=== PATIENT | male | born 1945 | race Caucasian/White ===

== ENCOUNTER → 2017-09-30 10:23 | Outpatient (CLI) | payer MEDICARE, OTHER, SELFPAY ==
[2017-09-30 11:53] LABS: Albumin, Serum 3.4 g/dL (3.2-5.0); BUN 27 mg/dL (7-18); BUN/Creat Ratio 19.7 RATIO (10-20); Calcium,Total 8.8 mg/dL (8.5-10.1); Chloride 104 mmol/L (98-107); Creatinine, Serum 1.37 mg/dL (0.70-1.30); EST Glomerular Filtration Rate 54 mL/min (>60); Est Glom Filt Rate - Afr Amer 66 mL/min (>60); Glucose 242 mg/dL (74-106); Phosphorus 3.2 mg/dL (2.5-4.9); Potassium 4.4 mmol/L (3.5-5.1); Sodium Level 140 mmol/L (136-145)
== END ==
PROVIDERS: Family Provider Family Medicine; PCP Family Medicine; Visit Provider Internal Medicine Nephrology
DX: N17.9 Acute kidney failure, unspecified (principal); N18.3 Chronic kidney disease, stage 3 (moderate); R76.8 Other specified abnormal immunological findings in serum
CPT/HCPCS: 36415; 80069

== ENCOUNTER → 2017-10-23 13:31 | Outpatient (CLI) | payer MEDICARE, OTHER, SELFPAY ==
[2017-10-23 14:59] LABS: Albumin, Serum 3.4 g/dL (3.2-5.0); BUN 30 mg/dL (7-18); BUN/Creat Ratio 17.5 RATIO (10-20); Chloride 105 mmol/L (98-107); Creatinine, Serum 1.71 mg/dL (0.70-1.30); EST Glomerular Filtration Rate 42 mL/min (>60); Est Glom Filt Rate - Afr Amer 51 mL/min (>60); Glucose 187 mg/dL (74-106); Phosphorus 3.9 mg/dL (2.5-4.9); Potassium 4.6 mmol/L (3.5-5.1); Sodium Level 140 mmol/L (136-145)
== END ==
PROVIDERS: Family Provider Family Medicine; PCP Family Medicine; Visit Provider Internal Medicine Nephrology
DX: N18.3 Chronic kidney disease, stage 3 (moderate) (principal)
CPT/HCPCS: 36415; 80069

== ENCOUNTER → 2017-11-09 12:12 | Outpatient (CLI) | payer MEDICARE, OTHER, SELFPAY ==
[2017-11-09 13:27] LABS: Albumin, Serum 3.8 g/dL (3.2-5.0); BUN 29 mg/dL (7-18); BUN/Creat Ratio 18.8 RATIO (10-20); Calcium,Total 9.4 mg/dL (8.5-10.1); Chloride 103 mmol/L (98-107); Creatinine, Serum 1.54 mg/dL (0.70-1.30); EST Glomerular Filtration Rate 47 mL/min (>60); Est Glom Filt Rate - Afr Amer 57 mL/min (>60); Glucose 268 mg/dL (74-106); Phosphorus 4.1 mg/dL (2.5-4.9); Potassium 4.2 mmol/L (3.5-5.1); Sodium Level 139 mmol/L (136-145)
== END ==
PROVIDERS: Family Provider Family Medicine; PCP Family Medicine; Visit Provider Internal Medicine Nephrology
DX: N17.9 Acute kidney failure, unspecified (principal)
CPT/HCPCS: 36415; 80069

== ENCOUNTER → 2017-12-10 13:23 | Outpatient (CLI) | payer MEDICARE, OTHER, SELFPAY ==
[2017-12-10 16:10] LABS: Anion Gap 10 (5-15); BUN 27 mg/dL (7-18); BUN/Creat Ratio 18.5 RATIO (10-20); Calcium,Total 8.9 mg/dL (8.5-10.1); Chloride 103 mmol/L (98-107); Creatinine, Serum 1.46 mg/dL (0.70-1.30); EST Glomerular Filtration Rate 50 mL/min (>60); Est Glom Filt Rate - Afr Amer 61 mL/min (>60); Glucose 268 mg/dL (74-106); Potassium 3.9 mmol/L (3.5-5.1); Sodium Level 141 mmol/L (136-145); Uric Acid 8.3 mg/dL (3.5-7.2)
[2017-12-10 16:11] LABS: Absolute Lymphocyte Count 2.03 X10^3/ul (0.83-4.51); Basophil# 0.05 X10^3/uL; Basophil% 0.6 % (0-1); Eosinophil# 0.18 X10^3/uL; Hematocrit 46.3 % (40-54); Hemoglobin 15.4 g/dl (13.0-16.5); Lymphocyte # 2.03 X10^3/ul (4.0); Lymphocyte % 22.5 % (19-41); Mean Corp Hgb Conc 33.3 g/gl (32-36); Mean Corpuscular Hgb 31.2 pg (27.0-32.0); Mean Corpuscular Volume 93.7 fL (80-94); Mean Platelet Vol. 12.2 fl (6.2-12.0); Monocyte% 7.8 % (0-10); Neutrophil # 6.03 X10^3/uL (2.7-7.7); Neutrophil % 66.8 % (47-70); Platelet Count 160 K/mm3 (150-450); RBC Distribution Width CV 13.6 % (11.6-14.6); RBC Distribution Width SD 46.4 fl (35.1-43.9); Red Blood Count 4.94 M/mm3 (4.6-6.2)
[2017-12-10 16:12] LABS: POSITIVE COUNT NO; POSITIVE DIFFERENTIAL NO; POSITIVE MORPHOLOGY NO
== END ==
PROVIDERS: Family Provider Family Medicine; PCP Family Medicine; Visit Provider Family Medicine
DX: M10.9 Gout, unspecified (principal); J44.9 Chronic obstructive pulmonary disease, unspecified; N18.3 Chronic kidney disease, stage 3 (moderate)
CPT/HCPCS: 36415; 80048; 84550; 85025

== ENCOUNTER → 2017-12-23 18:38 | Outpatient (CLI) | payer MEDICARE, OTHER, SELFPAY ==
--- NOTE | 2017-12-23 06:30 | CT_ITS ---
STUDY: LOW DOSE CT LUNG CANCER SCREENING REASON FOR EXAM: Male, 72 years old. 60 pack-year smoker. RADIATION DOSAGE (If Supplied By Facility): CTDIvol = ( 3.02 ) mGy, DLP = ( 110.23 ) mGycm TECHNIQUE: No contrast was administered. Low dose technique was utilized (average mAS-38 and kVp 120). 1.25 mm axial source images with a slice interval of 1.25-mm were reconstructed in lung windows. 2.5 mm axial source images with a slice interval of 2.5-mm were reconstructed in lung windows. 5.0 mm axial source images with a slice interval of 5.0-mm were reconstructed in soft tissue windows. Nodule measured using lung windows on PACS and/or independent workstation with automated measurement of minimum and maximum diameter. Nodule measurement reported as average diameter rounded to the nearest whole number. Growth is defined as an increase ins size of greater than 1.5 mm. COMPARISON: Comparison is made with prior examination dated September 23, 2016. NODULES: No nodules are seen. Total lung nodules (excluding granulomas): 0 Emphysema: Mild degree of emphysematous changes. Mild degree of increased markings at the lung bases suggestive of a mild bibasilar scarring. Endobronchial lesion: Aorta: Atherosclerotic calcification of the aortic arch. Coronary arteries: Coronary calcification. Heart: A left-sided pacemaker is seen. Prior midline sternotomy. Mediastinal nodes: Small benign-appearing mediastinal lymph nodes. Other chest and abdominal findings: CT/Low Dose CT Lung Screening IMPRESSION: Lung-RADS category 2 - Continue annual screening with LDCT in 12 months. IMPORTANT NOTES FOR USE: ACR Lung-RADS Version 1.0 Assessment Categories Release Date: November 28, 2013 Category: Coded 0-4 bases on nodule(s) with highest degree of suspicion. Negative screen is defined as categories 1 and 2; a positive screen is defined as categories 3 and 4. Category 3 and 4A nodules that are unchanged on interval CT should be coded as category 2, and individuals returned to screening in 12 months. Category 4X: Category 3 or 4 nodules with additional imaging findings that increase the suspicion of lung cancer, such as spiculation, GGN that doubles in size in 1 year, enlarged lymph notes, etc. Category Modifiers: S (significant finding unrelated to lung cancer) and C (prior history of treated lung cancer) may be added to the 0-4 Lung-RADS Electronically Signed: Jesus Salazar MD at 10:20 EDT Tel [phone], Service support ,
== END ==
PROVIDERS: Family Provider Family Medicine; PCP Family Medicine; Visit Provider Family Medicine
DX: Z12.2 Encounter for screening for malignant neoplasm of respiratory organs (principal); J44.9 Chronic obstructive pulmonary disease, unspecified; Z87.891 Personal history of nicotine dependence
CPT/HCPCS: G0297

== ENCOUNTER → 2018-01-13 14:08 | Outpatient (CLI) | payer MEDICARE, OTHER, SELFPAY ==
[2018-01-13 16:15] LABS: Albumin, Serum 3.6 g/dL (3.2-5.0); BUN 22 mg/dL (7-18); BUN/Creat Ratio 16.2 RATIO (10-20); Chloride 104 mmol/L (98-107); Creatinine, Serum 1.36 mg/dL (0.70-1.30); EST Glomerular Filtration Rate 55 mL/min (>60); Est Glom Filt Rate - Afr Amer 66 mL/min (>60); Glucose 204 mg/dL (74-106); Phosphorus 3.5 mg/dL (2.5-4.9); Potassium 4.4 mmol/L (3.5-5.1); Sodium Level 140 mmol/L (136-145); Uric Acid 6.8 mg/dL (3.5-7.2)
[2018-01-13 16:21] LABS: Hemoglobin A1c 8.8 % (4.2-6.3)
== END ==
PROVIDERS: Family Provider Family Medicine; PCP Family Medicine; Visit Provider Internal Medicine Nephrology
DX: E79.0 Hyperuricemia without signs of inflammatory arthritis and tophaceous disease (principal); E11.29 Type 2 diabetes mellitus with other diabetic kidney complication; N17.9 Acute kidney failure, unspecified
CPT/HCPCS: 36415; 80069; 83036; 84550

== ENCOUNTER → 2018-04-12 12:51 | Outpatient (CLI) | payer MEDICARE, OTHER, SELFPAY ==
[2018-04-12 13:47] LABS: Hemoglobin A1c 8.3 % (4.2-6.3)
[2018-04-12 14:02] LABS: AST(SGOT) 50 U/L (15-37); Alanine Aminotransfer ALT/SGPT 74 U/L (16-61); Albumin, Serum 3.4 g/dL (3.2-5.0); Alkaline Phosphatase 132 U/L (45-117); Bilirubin, Direct 0.13 mg/dL (0.00-0.30); Cholesterol 182 mg/dL (200); Globulin 4.2 g/dL (2.2-4.2); High Density Lipoprotein 51 mg/dL; Protein, Total 7.6 g/dL (6.4-8.2); Triglycerides 167 mg/dL; Very Low Density Lipoprotein 33 mg/dL (5-40)
== END ==
PROVIDERS: Family Provider Family Medicine; PCP Family Medicine; Visit Provider Internal Medicine Cardiovascular Disease
DX: E78.00 Pure hypercholesterolemia, unspecified (principal); E11.29 Type 2 diabetes mellitus with other diabetic kidney complication; E79.0 Hyperuricemia without signs of inflammatory arthritis and tophaceous disease
CPT/HCPCS: 36415; 80061; 80076; 83036; 84550

== ENCOUNTER → 2018-05-14 09:42 | Outpatient (CLI) | payer MEDICARE, OTHER, SELFPAY ==
--- NOTE | 2018-05-14 09:45 | US_ITS ---
PROCEDURES: ULTRASOUND AORTA REASON FOR EXAM: Male, 72 years old. CAD TECHNIQUE: Ultrasound evaluation of the aorta was performed with real-time and static kearney-scale imaging. COMPARISON: None. FINDINGS: There is no elongation or tortuosity of the abdominal aorta. Aorta measures: Proximal 2.3 cm. Middle 2.4 cm. Distal 4.2 cm. Aorta measure transversely: Proximal 2.5 cm. Middle 2.0 cm. Distal 4.6 cm. Right iliac artery measures: 0.9 cm. Right iliac artery measure transversely: 1.2 cm. Left iliac artery measures: 1.2 cm. Left iliac artery measure transversely: 1.2 cm. There is distal abdominal aortic aneurysm with intraluminal thrombus.. US/US ABD AORTA SCREEN/AAA IMPRESSION: Aneurysm of the distal abdominal aorta with intraluminal thrombus. Electronically Signed: Amarjit Gutiérrez DO at 23:57 EDT Tel [phone], Service support ,
== END ==
PROVIDERS: Family Provider Family Medicine; PCP Family Medicine; Referring Provider Family Medicine; Visit Provider Family Medicine
DX: I25.10 Atherosclerotic heart disease of native coronary artery without angina pectoris (principal); Z87.891 Personal history of nicotine dependence
CPT/HCPCS: 76706

== ENCOUNTER → 2018-05-28 11:39 | Outpatient (CLI) | payer MEDICARE, OTHER, SELFPAY ==
[2018-05-28 12:53] LABS: AST(SGOT) 33 U/L (15-37); Alanine Aminotransfer ALT/SGPT 40 U/L (16-61); Albumin, Serum 3.2 g/dL (3.2-5.0); Alkaline Phosphatase 130 U/L (45-117); Bilirubin, Direct 0.11 mg/dL (0.00-0.30); Cholesterol 162 mg/dL (200); Globulin 4.1 g/dL (2.2-4.2); High Density Lipoprotein 45 mg/dL; Protein, Total 7.3 g/dL (6.4-8.2); Triglycerides 124 mg/dL; Very Low Density Lipoprotein 25 mg/dL (5-40)
== END ==
PROVIDERS: Family Provider Family Medicine; PCP Family Medicine; Referring Provider Nurse Practitioner Family; Visit Provider Nurse Practitioner Family
DX: E78.00 Pure hypercholesterolemia, unspecified (principal)
CPT/HCPCS: 36415; 80061; 80076

== ENCOUNTER → 2018-07-30 14:30 | Outpatient (CLI) | payer MEDICARE, OTHER, SELFPAY ==
[2018-07-30 15:23] LABS: Protein, Urine (Random) 221.6 mg/dL (<11.9); Protein:Creat Ratio 2151 mg/g CRE (0-200)
[2018-07-30 15:35] LABS: Hematocrit 45.6 % (40-54); Mean Corp Hgb Conc 32.9 g/gl (32-36); Mean Corpuscular Hgb 31.1 pg (27.0-32.0); Mean Corpuscular Volume 94.6 fL (80-94); Mean Platelet Vol. 12.2 fl (6.2-12.0); Platelet Count 157 K/mm3 (150-450); RBC Distribution Width CV 14.5 % (11.6-14.6); RBC Distribution Width SD 48.5 fl (35.1-43.9); Red Blood Count 4.82 M/mm3 (4.6-6.2); White Blood Count 8.9 K/mm3 (4.4-11.0)
[2018-07-30 15:49] LABS: Albumin, Serum 3.2 g/dL (3.2-5.0); BUN 22 mg/dL (7-18); BUN/Creat Ratio 15.2 RATIO (10-20); Calcium,Total 8.6 mg/dL (8.5-10.1); Chloride 108 mmol/L (98-107); Creatinine, Serum 1.45 mg/dL (0.70-1.30); EST Glomerular Filtration Rate 51 mL/min (>60); Est Glom Filt Rate - Afr Amer 61 mL/min (>60); Glucose 211 mg/dL (74-106); Phosphorus 3.4 mg/dL (2.5-4.9); Potassium 3.8 mmol/L (3.5-5.1); Sodium Level 143 mmol/L (136-145)
[2018-07-30 16:25] LABS: PTHIN 59.5 pg/mL (18.4-80.1)
[2018-07-30 16:39] LABS: Scan Indicated on CBC? Y/N NO
== END ==
PROVIDERS: Family Provider Family Medicine; PCP Family Medicine; Referring Provider Internal Medicine Nephrology; Visit Provider Internal Medicine Nephrology
DX: E11.22 Type 2 diabetes mellitus with diabetic chronic kidney disease (principal); N18.3 Chronic kidney disease, stage 3 (moderate)
CPT/HCPCS: 36415; 80069; 82570; 83970; 84156; 85027

== ENCOUNTER → 2019-03-29 12:14 | Outpatient (CLI) | payer MEDICARE, OTHER, SELFPAY ==
[2019-02-18 13:00] VITALS: BMI 26.3
[2019-03-29 13:03] LABS: Albumin, Serum 3.3 g/dL (3.2-5.0); BUN 24 mg/dL (7-18); BUN/Creat Ratio 15.8 RATIO (10-20); Calcium,Total 8.9 mg/dL (8.5-10.1); Chloride 107 mmol/L (98-107); Creatinine, Serum 1.52 mg/dL (0.70-1.30); EST Glomerular Filtration Rate 48 mL/min (>60); Est Glom Filt Rate - Afr Amer 58 mL/min (>60); Glucose 116 mg/dL (74-106); Phosphorus 3.7 mg/dL (2.5-4.9); Potassium 4.8 mmol/L (3.5-5.1); Sodium Level 144 mmol/L (136-145)
[2019-03-29 13:11] LABS: Protein, Urine (Random) 514.2 mg/dL (<11.9); Protein:Creat Ratio 3155 mg/g CRE (0-200)
== END ==
PROVIDERS: Family Provider Family Medicine; PCP Family Medicine; Visit Provider Internal Medicine Nephrology
DX: N18.3 Chronic kidney disease, stage 3 (moderate) (principal); R80.9 Proteinuria, unspecified
CPT/HCPCS: 36415; 80069; 82570; 84156

== ENCOUNTER → 2019-04-15 14:22 | Outpatient (CLI) | payer MEDICARE, OTHER, SELFPAY ==
[2019-02-18 13:00] VITALS: BMI 26.3
[2019-04-15 15:03] LABS: Protein, Urine (Random) 226.2 mg/dL (<11.9); Protein:Creat Ratio 3422 mg/g CRE (0-200)
[2019-04-15 15:21] LABS: Albumin, Serum 3.2 g/dL (3.2-5.0); BUN 21 mg/dL (7-18); BUN/Creat Ratio 17.5 RATIO (10-20); Calcium,Total 8.9 mg/dL (8.5-10.1); Chloride 112 mmol/L (98-107); EST Glomerular Filtration Rate 63 mL/min (>60); Est Glom Filt Rate - Afr Amer 76 mL/min (>60); Glucose 90 mg/dL (74-106); Phosphorus 3.5 mg/dL (2.5-4.9); Potassium 4.3 mmol/L (3.5-5.1); Sodium Level 147 mmol/L (136-145)
== END ==
PROVIDERS: Family Provider Family Medicine; PCP Family Medicine; Referring Provider Internal Medicine Nephrology; Visit Provider Internal Medicine Nephrology
DX: R80.9 Proteinuria, unspecified (principal); N17.9 Acute kidney failure, unspecified; E11.22 Type 2 diabetes mellitus with diabetic chronic kidney disease
CPT/HCPCS: 36415; 80069; 82570; 84156

== ENCOUNTER → 2019-07-08 15:59 | Outpatient (CLI) | payer MEDICARE, OTHER, SELFPAY ==
[2019-07-08 15:02] VITALS: BMI 27.1
[2019-07-08 17:05] LABS: Absolute Lymphocyte Count 1.17 X10^3/uL (0.83-4.51); Absolute Neutrophil Count 7.3 X10^3/uL (2.0-7.7); Basophil# 0.07 X10^3/uL; Basophil% 0.7 % (0-1); Eosinophil# 0.19 X10^3/uL; Eosinophils% 1.9 % (0-5); Hematocrit 48.5 % (40-54); Hemoglobin 15.1 g/dL (13.0-16.5); Lymphocyte # 1.17 X10^3/ul (4.0); Lymphocyte % 11.7 % (19-41); Mean Corp Hgb Conc 31.1 g/dL (32-36); Mean Corpuscular Hgb 29.3 pg (27.0-32.0); Mean Corpuscular Volume 94.2 fL (80-94); Mean Platelet Vol. 12.3 fl (6.2-12.0); Monocyte# 1.19 X10^3/uL; Monocyte% 11.9 % (0-10); NRBC Flagged by Analyzer 0 % (0-5); Neutrophil # 7.31 X10^3/uL (2.7-7.7); Neutrophil % 73.2 % (47-70); Platelet Count 169 K/mm3 (150-450); RBC Distribution Width CV 17.5 % (11.6-14.6); RBC Distribution Width SD 60.4 fl (35.1-43.9); Red Blood Count 5.15 M/mm3 (4.6-6.2)
[2019-07-08 17:19] LABS: Anion Gap 6 (5-15); BUN 21 mg/dL (7-18); BUN/Creat Ratio 16.2 RATIO (10-20); Calcium,Total 9.4 mg/dL (8.5-10.1); Chloride 107 mmol/L (98-107); EST Glomerular Filtration Rate 57 mL/min (>60); Est Glom Filt Rate - Afr Amer 69 mL/min (>60); Glucose 111 mg/dL (74-106); Potassium 4.2 mmol/L (3.5-5.1); Sodium Level 143 mmol/L (136-145)
== END ==
PROVIDERS: Family Provider Internal Medicine; PCP Internal Medicine; Referring Provider Physician Assistant Medical; Visit Provider Physician Assistant Medical
DX: I25.5 Ischemic cardiomyopathy (principal)
CPT/HCPCS: 36415; 80048; 85025

== ENCOUNTER → 2019-07-25 13:47 | Outpatient (CLI) | payer MEDICARE, OTHER, SELFPAY ==
[2019-07-08 15:02] VITALS: BMI 27.1
--- NOTE | 2019-07-25 13:48 | ECHOCS_ITS ---
Reason For Study: Dyspnea/SOB Procedure This was a 2D Doppler, Color Flow transthoracic echocardiogram. Contrast injection was performed. OK to use definity per Dr. Rodriguez. Exam performed in department. Left Ventricle Severely dilated left ventricle. The estimated ejection fraction is 15 %. Stage 2 diastolic dysfunction. Severe segmental systolic dysfunction (see wall motion). [place] : Akinetic. Mid- anteroseptal : Akinetic. There are regional wall motion abnormalities as specified. There is severe global hypokinesis of the left ventricle. Right Ventricle Mildly dilated right ventricle. ICD or pacer leads identified within the right ventricle. Mild global right ventricular systolic dysfunction. Atria The left atrium is mildly enlarged. The right atrium is moderately enlarged. ICD or pacer leads identified within the right atrium. Mitral Valve There is moderate mitral annular calcification. Mild-Moderate (1-2+) eccentric mitral valve insufficiency. Tricuspid Valve Normal tricuspid valve. Moderate (2+) tricuspid valve insufficiency. Pulmonary artery systolic pressure is 54 mmHg. Aortic Valve Trisinus/trileaflet aortic valve. Pulmonic Valve Normal pulmonic valve. Mild (1+) pulmonic valve insufficiency. Great Vessels Calcified aortic root. The pulmonary artery is normal size. Normal inferior vena cava. Pericardium/Pleural No pericardial effusion. Medication Diluted definity 4ml given slow IV push to enhance endocardial definition. MMode/2D Measurements & Calculations LVIDd: 6.3 cm IVSd: 1.3 cm LVOT diam: 2.0 cm LVIDs: 5.8 cm LVPWd: 0.88 cm RVDd: 6.6 cm FS: 7.8 % LVOT area: 3.2 cm2 Ao root diam: 3.8 cm LAV(MOD-bp): 78.3 ml LVAd ap4: 50.8 cm2 LAV(MOD-bp) Indexed: 37.6 ml/m2 EDV(MOD-sp4): 202.3 ml LAV(MOD-sp2): 89.7 ml EDV(sp4-el): 213.7 ml LAV(MOD-sp4): 60.2 ml LVAs ap4: 47.1 cm2 ESV(MOD-sp4): 176.2 ml ESV(sp4-el): 187.3 ml EF(MOD-sp4): 12.9 % EF(sp4-el): 12.4 % SV(MOD-sp4): 26.1 ml SV(sp4-el): 26.4 ml LA A4 area: 22.7 cm2 LA dimension(2D): 4.8 cm RA A4 area: 29.7 cm2 Doppler Measurements & Calculations MV E max kamar: 100.9 cm/sec Lat Peak E' Kamar: 4.2 cm/sec Med Peak E' Kamar: 2.2 cm/sec MV A max kamar: 62.8 cm/sec E/E' lat: 24.2 E/E' med: 46.0 MV E/A: 1.6 Ao V2 max: 192.1 cm/sec LV V1 max: 101.3 cm/sec SV(LVOT): 57.8 ml Ao max P.8 mmHg LV V1 max P.1 mmHg Ao V2 mean: 139.2 cm/sec LV V1 mean P.2 mmHg Ao mean P.6 mmHg LV V1 mean: 70.2 cm/sec Ao V2 VTI: 35.8 cm LV V1 VTI: 18.0 cm DELFINO(I,D): 1.6 cm2 DELFINO(V,D): 1.7 cm2 PA V2 max: 69.3 cm/sec PI end-d kamar: 144.5 cm/sec TR max kamar: 352.6 cm/sec TR max P.7 mmHg Interpretation Summary Severely dilated left ventricle. The estimated ejection fraction is 15 %. Stage 2 diastolic dysfunction. Severe segmental systolic dysfunction (see wall motion). Compared to previous study, the left ventricular systolic function has worsened.. Ordering Physician: Joselyn Sanders Referring Physician: Perry Stewart Performed By: Sangeetha Mistry RDCS, RVT
== END ==
PROVIDERS: Family Provider Internal Medicine; PCP Internal Medicine; Referring Provider Physician Assistant Medical; Visit Provider Physician Assistant Medical
DX: I25.5 Ischemic cardiomyopathy (principal); I25.810 Atherosclerosis of coronary artery bypass graft(s) without angina pectoris; R06.00 Dyspnea, unspecified
CPT/HCPCS: 93306; Q9957; A4216; C8929

== ENCOUNTER → 2019-09-07 06:15 | Outpatient (CLI) | payer MEDICARE, OTHER, SELFPAY ==
[2019-08-29 14:32] VITALS: BMI 25.7
--- NOTE | 2019-09-07 18:41 | STRESSREP_ITS ---
Stress Test Report Date: 09-07-2019 Procedure: Pharmacologic stress nuclear imaging study Indications: CAD; CABG; AVR; ischemic cardiomyopathy; ICD; hyperlipidemia; hypertension; preoperative cardiovascular evaluation Consent: Per the patient Procedure: The patient underwent pharmacologic (Regadenoson) evaluation with a peak heart rate of 88 beats per minute (60 %predicted maximal heart rate) and a peak blood pressure of 120/80 mmHg. The baseline ECG demonstrated chronic ventricular pacemaker. The peak pharmacologic ECG demonstrated no obvious ECG changes. There were occasional PVCs pretest and in recovery. There was no complaint of chest discomfort during pharmacologic infusion or recovery. The examination was discontinued secondary to completion of protocol. Impression: 1. Pharmacologic (Regadenoson) evaluation 2. Peak pharmacologic ECG with no obvious ECG changes. 3. There were occasional PVCs pretest and in recovery. 4. Nuclear images pending Myocardial perfusion imaging study: Technique: The patient was injected with 11.8 millicuries of technetium 99m Cardiolite and subsequently rest SPECT Cardiolite nuclear imaging was obtained in the horizontal long, vertical long, and short axis views. The patient underwent pharmacologic (Regadenoson) evaluation with a peak heart rate of 88 beats per minute (60 % percent predicted maximal heart rate) and a peak blood pressure of 120/80 mmHg. The patient was injected with 33.6 millicuries of technetium 99m Cardiolite and subsequently stress SPECT Cardiolite nuclear imaging was obtained in the horizontal long, vertical long, and short axis views. A gated Cardiolite study at peak stress was obtained. Interpretation: Rest and stress SPECT Cardiolite nuclear imaging status post realignment, normalization, and attenuation correction demonstrate the appearance of diminished absence of myocardial perfusion/tracer uptake in the distal anterior, mid to distal anteroseptal, mid to distal inferoseptal, distal inferior, and apical segments. There is diminished end systolic thickening and brightening in the aforementioned areas. The gated Cardiolite study demonstrates diminished myocardial thickening and inward wall motion in the aforementioned areas. The reported LVEF is 22 %. Impression: 1. Rest and stress SPECT Cardiolite nuclear imaging demonstrate myocardial perfusion changes compatible with an area of previous myocardial injury/infarction with no obvious myocardial perfusion changes considered diagnostic for associated stress-induced myocardial ischemia. 2. The gated Cardiolite study reports an LVEF of 42 %. This note was generated with [employer] software. It may contain incorrect words, spelling, and punctuation that were not noted in checking the note before signing.
== END ==
PROVIDERS: PCP Internal Medicine; Referring Provider Internal Medicine Cardiovascular Disease; Visit Provider Internal Medicine Cardiovascular Disease
DX: I25.10 Atherosclerotic heart disease of native coronary artery without angina pectoris (principal); Z95.1 Presence of aortocoronary bypass graft
CPT/HCPCS: 78452; 93017; A9500; A4216; J2785

== ENCOUNTER 2019-09-08 17:07 | Emergency (ER) | payer MEDICARE, OTHER, SELFPAY ==
[2019-08-29 14:32] VITALS: BMI 25.7
[2019-09-08 17:10] VITALS: BP 140/70; PULSE 82; RESP 16; TEMP 37.1; O2SAT 95; BMI 24.7
--- NOTE | 2019-09-08 17:59 | EKG12_ITS ---
Test Reason : Blood Pressure : / mmHG Vent. Rate : 082 BPM Atrial Rate : 082 BPM P-R Int : 252 ms QRS Dur : 172 ms QT Int : 450 ms P-R-T Axes : 094 -65 106 degrees QTc Int : 525 ms Sinus rhythm with 1st degree A-V block Left axis deviation Left ventricular hypertrophy with QRS widening and repolarization abnormality Abnormal ECG Confirmed by ERICA MAX, TRENT ([id number]), graphics editor JULIO HARE ([id number]) on 09/12/2019 10:26:55 AM Referred By: ALEJANDRO Confirmed By:ADÁN MALDONADO MD
--- NOTE | 2019-09-08 18:10 | RAD_ITS ---
STUDY: X-RAY CHEST REASON FOR EXAM: Male, 74 years old. SENT FROM PCP FOR HEART RATE IN THE 120S PER PT REPORT, GENERAL ILLNESS, HX HTN TECHNIQUE: Single AP portable view of the chest. COMPARISON: 05/09/17 FINDINGS: The lungs are clear and expanded. There is no demonstrated pleural abnormality. There is moderate cardiac enlargement. Mediastinal wires. Left chest wall pacemaker. Normal mediastinum and trae. Normal visualized pulmonary arteries. Normal visualized aortic arch and descending thoracic aorta. Normal visualized thoracic spine. Normal visualized ribs, clavicles, and shoulders. There is no demonstrated abnormality of the visualized soft tissue structures of the upper abdomen. RAD/Chest 1 View (Portable) IMPRESSION: No acute findings Electronically Signed: José Miguel Riddle DO at 18:54 EST Tel , Service support ,
--- NOTE | 2019-09-08 18:11 | ED.RN ---
pacemaker interrogation completed. this nurse contact [employer] reference the same
[2019-09-08 18:22] VITALS: O2SAT 93
[2019-09-08 18:41] LABS: Absolute Neutrophil Count 5.8 X10^3/uL (2.0-7.7); Basophil# 0.08 X10^3/uL; Eosinophil# 0.18 X10^3/uL; Eosinophils% 2.2 % (0-5); Hematocrit 47.2 % (40-54); Hemoglobin 14.5 g/dL (13.0-16.5); Lymphocyte % 16.9 % (19-41); Mean Corp Hgb Conc 30.7 g/dL (32-36); Mean Corpuscular Hgb 28.9 pg (27.0-32.0); Mean Platelet Vol. 12.4 fl (6.2-12.0); Monocyte# 0.79 X10^3/uL; Monocyte% 9.5 % (0-10); NRBC Flagged by Analyzer 0 % (0-5); Neutrophil # 5.79 X10^3/uL (2.7-7.7); Neutrophil % 69.9 % (47-70); Platelet Count 141 K/mm3 (150-450); RBC Distribution Width CV 17.3 % (11.6-14.6); Red Blood Count 5.02 M/mm3 (4.6-6.2); White Blood Count 8.3 K/mm3 (4.4-11.0)
[2019-09-08 18:59] LABS: Anion Gap 2 (5-15); BUN 20 mg/dL (7-18); BUN/Creat Ratio 16.8 RATIO (10-20); Chloride 108 mmol/L (98-107); Creatinine, Serum 1.19 mg/dL (0.70-1.30); EST Glomerular Filtration Rate 63 mL/min (>60); Est Glom Filt Rate - Afr Amer 77 mL/min (>60); Estimated Creatinine Clearance 60.62 ml/min; Glucose 109 mg/dL (74-106); Magnesium 2.4 mg/dL (1.6-2.6); Potassium 4.2 mmol/L (3.5-5.1); Sodium Level 142 mmol/L (136-145)
--- NOTE | 2019-09-08 19:03 | ED.VISSUMM ---
- ER Visit Summary Date of Service: 09/08/19 Chief Complaint: Increased heart rate History of Present Illness: The patient is a 74 M who was referred to his PCP for tachycardia. Patient has a history of diabetes, ischemic cardiomyopathy, coronary disease, and defibrillator. He has an ejection fraction of 15 to 20%. He had a recent stress test. He was at the doctor's today for routine visit and found to have a heart rate in the 120s. Patient has had no symptoms then or now. Physical Examination: Afebrile and vital signs unremarkable. Heart rate 82. Exam unremarkable. Test Results: EKG showed sinus rhythm at a rate of 82. Intraventricular conduction delay. Patient with PVCs on the monitor. CBC, BMP, troponin unremarkable. Chest x-ray normal. Interrogated his defibrillator and he had no events. Emergency Department Course and Treatment: Patient was evaluated. Work-up was unremarkable. He had no symptoms throughout his stay. Interrogation was unremarkable for any dysrhythmias or other abnormalities. Patient will be discharged home to follow-up with his doctor. Return for any new or worsening issues. Treatment Plan: As above Disposition: Discharge Impression: Tachycardia This note was generated with [employer] dictation software. It may contain incorrect words, spelling, and punctuation that were not noted in review of the chart prior to signing ED Disposition - Plan for ED Patient: Referrals: Perry Stewart MD [Primary Care Provider] -
--- NOTE | 2019-09-08 19:05 | ED.DEP ---
ED Disposition - Plan for ED Patient: Diagnosis: Implantable cardioverter-defibrillator (ICD) in situ Referrals: Perry Stewart MD [Primary Care Provider] -
[2019-09-08 19:10] VITALS: BP 113/82; PULSE 83; RESP 23; O2SAT 98
== END 2019-09-08 19:14 | disposition home or self-care (01) ==
LOC: ED 18:44
PROVIDERS: Emergency Provider Emergency Medicine; PCP Internal Medicine
DX: R00.0 Tachycardia, unspecified (principal); I25.10 Atherosclerotic heart disease of native coronary artery without angina pectoris; I25.5 Ischemic cardiomyopathy; I13.0 Hypertensive heart and chronic kidney disease with heart failure and stage 1 through stage 4 chronic kidney disease, or unspecified chronic kidney disease; E11.22 Type 2 diabetes mellitus with diabetic chronic kidney disease; N18.9 Chronic kidney disease, unspecified; I50.9 Heart failure, unspecified; Z95.1 Presence of aortocoronary bypass graft; Z95.810 Presence of automatic (implantable) cardiac defibrillator; Z79.82 Long term (current) use of aspirin; Z79.4 Long term (current) use of insulin; Z79.84 Long term (current) use of oral hypoglycemic drugs; Z72.0 Tobacco use
CPT/HCPCS: 71045; 80048; 83735; 84484; 85025; 93005; 99284; A4216

== ENCOUNTER → 2019-12-14 11:52 | Outpatient (CLI) | payer MEDICARE, OTHER, SELFPAY ==
[2019-12-14 10:35] VITALS: BMI 27.3
--- NOTE | 2019-12-14 11:54 | RAD_ITS ---
STUDY: X-RAY CHEST REASON FOR EXAM: Male, 74 years old. SHORT OF BREATH, COUGH TECHNIQUE: PA and lateral views of the chest. COMPARISON: Comparison is made with prior study dated September 08, 2013. FINDINGS: There now is evidence of elevation of the right hemidiaphragm with a small to moderate-sized right pleural effusion and underlying right basilar atelectasis/infiltrate. The left lung is clear. Sternal cerclage wires and vascular clips are present from a prior sternotomy and coronary artery bypass graft procedure (CABG). A left-sided ICD is seen. Mild cardiomegaly. Normal mediastinum and trae. Normal visualized pulmonary arteries. There is atherosclerotic tortuosity of the aortic arch and descending thoracic aorta. There is demineralization of the osseous structures. Normal visualized ribs, clavicles, and shoulders. There is no demonstrated abnormality of the visualized soft tissue structures of the upper abdomen. RAD/Chest PA and Lateral IMPRESSION: New right pleural effusion with right basilar atelectasis/infiltrate. Electronically Signed: Jesus Salazar, at 12:37 EDT , Service support ,
[2019-12-14 12:54] LABS: Absolute Lymphocyte Count 0.91 X10^3/uL (0.83-4.51); Absolute Neutrophil Count 5.7 X10^3/uL (2.0-7.7); Basophil# 0.07 X10^3/uL; Basophil% 0.9 % (0-1); Eosinophil# 0.09 X10^3/uL; Eosinophils% 1.2 % (0-5); Hematocrit 46.3 % (40-54); Hemoglobin 14.4 g/dL (13.0-16.5); Lymphocyte # 0.91 X10^3/ul (4.0); Lymphocyte % 12.3 % (19-41); Mean Corp Hgb Conc 31.1 g/dL (32-36); Mean Corpuscular Hgb 30.5 pg (27.0-32.0); Mean Corpuscular Volume 98.1 fL (80-94); Mean Platelet Vol. 11.9 fl (6.2-12.0); Monocyte# 0.58 X10^3/uL; Monocyte% 7.8 % (0-10); NRBC Flagged by Analyzer 0 % (0-5); Neutrophil # 5.73 X10^3/uL (2.7-7.7); Neutrophil % 77.3 % (47-70); Platelet Count 148 K/mm3 (150-450); RBC Distribution Width CV 16.7 % (11.6-14.6); Red Blood Count 4.72 M/mm3 (4.6-6.2); White Blood Count 7.4 K/mm3 (4.4-11.0)
[2019-12-14 13:27] LABS: ALB/GLOB Ratio 0.9 RATIO (0.9-2.4); AST(SGOT) 30 U/L (15-37); Alanine Aminotransfer ALT/SGPT 22 U/L (16-61); Albumin, Serum 3.3 g/dL (3.2-5.0); Alkaline Phosphatase 115 U/L (45-117); Anion Gap 6 (5-15); BUN 46 mg/dL (7-18); BUN/Creat Ratio 25.4 RATIO (10-20); Calcium,Total 9.1 mg/dL (8.5-10.1); Chloride 105 mmol/L (98-107); Creatinine, Serum 1.81 mg/dL (0.70-1.30); EST Glomerular Filtration Rate 39 mL/min (>60); Est Glom Filt Rate - Afr Amer 47 mL/min (>60); Globulin 3.7 g/dL (2.2-4.2); Glucose 104 mg/dL (74-106); Magnesium 2.6 mg/dL (1.6-2.6); Potassium 4.1 mmol/L (3.5-5.1); Sodium Level 143 mmol/L (136-145); T4 Total, Thyroxin 8.7 ug/dL (4.5-12.1); Thyroid Stim Hormone (TSH) 1.47 uIU/mL (0.358-3.74)
== END ==
PROVIDERS: PCP Internal Medicine; Referring Provider Internal Medicine Cardiovascular Disease; Visit Provider Internal Medicine Cardiovascular Disease
DX: R06.02 Shortness of breath (principal); I25.810 Atherosclerosis of coronary artery bypass graft(s) without angina pectoris; I11.0 Hypertensive heart disease with heart failure; I50.22 Chronic systolic (congestive) heart failure; I65.23 Occlusion and stenosis of bilateral carotid arteries; I25.5 Ischemic cardiomyopathy; E78.00 Pure hypercholesterolemia, unspecified; R60.9 Edema, unspecified; Z86.79 Personal history of other diseases of the circulatory system; Z95.1 Presence of aortocoronary bypass graft; Z95.2 Presence of prosthetic heart valve; Z95.810 Presence of automatic (implantable) cardiac defibrillator; Z98.890 Other specified postprocedural states
CPT/HCPCS: 36415; 71046; 80053; 83735; 83880; 84436; 84443; 85025

== ENCOUNTER 2019-12-16 10:19 | Emergency (ER) | payer MEDICARE, OTHER, SELFPAY ==
[2019-12-14 10:35] VITALS: BMI 27.3
[2019-12-16 10:20] VITALS: BP 102/74; PULSE 80; RESP 16; TEMP 36.4; O2SAT 93; BMI 26.4
--- NOTE | 2019-12-16 10:41 | EKG12_ITS ---
Test Reason : SOB Blood Pressure : / mmHG Vent. Rate : 080 BPM Atrial Rate : 080 BPM P-R Int : 260 ms QRS Dur : 174 ms QT Int : 456 ms P-R-T Axes : 100 -63 105 degrees QTc Int : 525 ms Sinus rhythm with 1st degree A-V block Left axis deviation Right bundle branch block Septal infarct , age undetermined Inferior infarct , age undetermined T wave abnormality, consider lateral ischemia Abnormal ECG Confirmed by ERICA MAX, TRENT ([id number]), newspaper editor JULIO HARE ([id number]) on 12/20/2019 3:13:01 PM Referred By: KEANU Confirmed By:ADÁN MALDONADO MD
--- NOTE | 2019-12-16 10:46 | CT_ITS ---
STUDY: CT BRAIN WITHOUT CONTRAST REASON FOR EXAM: Male, 74 years old. PROGRESSIVE LEG WEAKNESS X MONTHS. HALLUCINATIONS, CONFUSION RADIATION DOSAGE (If Supplied By Facility): CTDIvol = ( 44.99 ) mGy, DLP = ( 846.73 ) mGycm TECHNIQUE: Transaxial CT imaging of the brain was performed without administration of intravenous contrast material. Individualized dose optimization techniques were used for this CT. COMPARISON: No relevant priors. FINDINGS: Normal soft tissue structures. Normal calvarium. There is mild cerebral atrophy with widening of the extra-axial spaces and ventricular dilatation. There are areas of decreased attenuation within the white matter tracts of the supratentorial brain, consistent with microvascular disease changes. Normal basal ganglia and thalami. Normal brainstem. Normal cerebellum. There is no intracranial hemorrhage. There are no findings of an acute ischemic infarction. Normal visualized paranasal sinuses. CT/Brain/Head without Contrast IMPRESSION: Chronic involutional changes of the brain. Electronically Signed: Ricky Paula MD at 12:32 EDT , Service support ,
[2019-12-16 11:47] LABS: Absolute Lymphocyte Count 0.98 X10^3/uL (0.83-4.51); Absolute Neutrophil Count 5.7 X10^3/uL (2.0-7.7); Basophil# 0.06 X10^3/uL; Basophil% 0.8 % (0-1); Eosinophil# 0.13 X10^3/uL; Eosinophils% 1.7 % (0-5); Hematocrit 43.8 % (40-54); Hemoglobin 14.2 g/dL (13.0-16.5); Lymphocyte # 0.98 X10^3/ul (4.0); Mean Corp Hgb Conc 32.4 g/dL (32-36); Mean Corpuscular Hgb 31.3 pg (27.0-32.0); Mean Corpuscular Volume 96.5 fL (80-94); Mean Platelet Vol. 12.2 fl (6.2-12.0); Monocyte# 0.59 X10^3/uL; Monocyte% 7.9 % (0-10); NRBC Flagged by Analyzer 0 % (0-5); Neutrophil # 5.71 X10^3/uL (2.7-7.7); Neutrophil % 76.1 % (47-70); Platelet Count 141 K/mm3 (150-450); RBC Distribution Width CV 17.1 % (11.6-14.6); RBC Distribution Width SD 59.6 fl (35.1-43.9); Red Blood Count 4.54 M/mm3 (4.6-6.2); White Blood Count 7.5 K/mm3 (4.4-11.0)
--- NOTE | 2019-12-16 11:54 | ED.DCSUM_ITS ---
- ER Visit Summary Date of Service: 12/16/19 Chief Complaint: Weakness and confusion History of Present Illness: The patient is a [address] Adonis Stewart. reports that he has had weakness and confusion that have been going on since his endovascular AAA repair at [facility] in October. These have both been progressive. However, the reports that he went in to have his surgery and when he came out from the operating room the confusion was already present. She states that they did not find a cause of this while he was still at the [facility]. Patient has lower extremity swelling that has increased over the past week. They saw Dr. Lamb in the office and had his Lasix doubled from 80 mg once a day to 80 mg twice a day. He had minimal urine output. He is scheduled to have a thoracentesis at 2:00 this afternoon. Patient denies any fever or chills. He denies cough. Does report a short of breath and this worsens with walking. He typically weighs 190 pounds. States that he was 198 pounds today. reports that his legs are even more swelling despite the double Lasix and he is beginning to have weeping from his legs. Patient denies chest pain. He denies abdominal pain. Is been nausea and vomited once. No blood in his emesis. No diarrhea. No dysuria or frequency. No headache. Physical Examination: Vitals: Stable. Afebrile. General: Well-nourished and well-developed. Head: Normocephalic atraumatic. Neck: Supple, no lymphadenopathy. No JVD. Nontender. Cardiovascular: Regular rate and rhythm. 2 out of 6 systolic murmur. Respiratory: No respiratory distress. Mild wheezing bilaterally with poor air movement and decreased breath sounds at the right base. Abdominal: Soft, nontender, nondistended, normal bowel sounds. No guarding, rebound, or peritoneal signs. Back: Nontender. Extremities: Nontender, 3+ pitting edema lower extremities bilaterally. There is slight weeping from the left. Skin: Normal color, no rash. Neurologic: Alert and oriented ?2 (he believes the year is 1999). Cranial nerves II through XII are intact. Normal strength and sensation. Psych: Normal affect. Test Results: EKG is sinus with first-degree AV block at a rate of 80. He also has right bundle branch block nonspecific ST changes. Is unchanged from earlier this year. CBC shows platelets of 141, segmented for 76, lymphocytes 13. Chem- 7 shows a BUN of 40 and creatinine 1.54. LFTs are normal. Coags are normal. UA is negative. Troponin is negative. Lactic acid is 1.2. Clinical Impression(s) from Imaging Studies Brain CT 12/16/19 10:46 IMPRESSION: Chronic involutional changes of the brain. Electronically Signed: Ricky Paula MD at 12:32 EDT , Service support , Chest X-Ray 12/16/19 11:55 IMPRESSION: Worsening right infiltrate and effusion. Electronically Signed: Ricky Paula MD at 12:14 EDT , Service support , Thoracentesis Ultrasound 12/16/19 14:15 IMPRESSION: Ultrasound-guided right thoracentesis. Electronically Signed: Jesus Salazar, at 15:28 EDT , Service support , Chest X-Ray 12/16/19 15:10 IMPRESSION: Status post right thoracentesis. There is no evidence of pneumothorax. Electronically Signed: Jesus Salazar, at 15:19 EDT , Service support , Emergency Department Course and Treatment: Patient was given Zosyn and vancomycin IV. He is resting comfortably. He did have thoracentesis here and 1700 cc of fluid was removed by the radiologist. He reports that this was straw-colored and does not appear to be a parapneumonic effusion. Treatment Plan: Patient was discussed with Dr. Lamb who feels with the confusion that he would better served at a tertiary care center. He was discussed with Dr. Multani at the [facility] was obstructed him in transfer. Disposition: Transferred in stable condition. Impression: 1. Confusion since October 17, 2019. 2. Right pleural effusion. 3. Thoracentesis with drainage of 1700 cc by radiologist. This note was generated with [employer] dictation software. It may contain incorrect words, spelling, and punctuation that were not noted in review of the chart prior to signing ED Disposition - Plan for ED Patient: Instructions: Thoracentesis Referrals: Perry Stewart MD [Primary Care Provider] -
--- NOTE | 2019-12-16 11:55 | RAD_ITS ---
STUDY: X-RAY CHEST REASON FOR EXAM: Male, 74 years old. PROGRESSIVE LEG WEAKNESS FOR MONTHS. REPORTS HALLUCINATIONS AND NOT ANSWERING QUESTIONS APPROPRIATELY -- HX MT, CHF, COPD TECHNIQUE: AP portable view of the chest. COMPARISON: December 14, 2019 FINDINGS: Pacemaker device on the left is stable. There are worsening right mid and lower lung airspace opacities. There is moderate right pleural effusion. Sternal cerclage wires are present from a prior sternotomy. Normal mediastinum and trae. Normal visualized pulmonary arteries. There is atherosclerotic calcification of the aortic arch with tortuosity. Normal visualized thoracic spine. Normal visualized ribs, clavicles, and shoulders. There is no demonstrated abnormality of the visualized soft tissue structures of the upper abdomen. RAD/Chest 1 View (Portable) IMPRESSION: Worsening right infiltrate and effusion. Electronically Signed: Ricky Paula MD at 12:14 EDT , Service support ,
[2019-12-16 12:01] LABS: International Normalized Ratio 1.2; Prothrombin Time (Protime)PT. 14.4 SECONDS (11.7-14.9)
[2019-12-16 12:04] LABS: AST(SGOT) 32 U/L (15-37); Alanine Aminotransfer ALT/SGPT 19 U/L (16-61); Albumin, Serum 3.3 g/dL (3.2-5.0); Alkaline Phosphatase 108 U/L (45-117); Anion Gap 7 (5-15); BUN 40 mg/dL (7-18); Calcium,Total 8.9 mg/dL (8.5-10.1); Chloride 107 mmol/L (98-107); Creatinine, Serum 1.54 mg/dL (0.70-1.30); EST Glomerular Filtration Rate 47 mL/min (>60); Est Glom Filt Rate - Afr Amer 57 mL/min (>60); Estimated Creatinine Clearance 46.84 ml/min; Globulin 3.3 g/dL (2.2-4.2); Glucose 98 mg/dL (74-106); Potassium 3.8 mmol/L (3.5-5.1); Protein, Total 6.6 g/dL (6.4-8.2); Sodium Level 144 mmol/L (136-145)
[2019-12-16 12:11] LABS: White Blood Cells 0 SEEN /hpf (0-5)
[2019-12-16 12:18] LABS: Color, Urine Yellow (Yellow); Glucose, Dipstick Normal (Normal); Ketone-Dipstick Negative (Negative); Leukocyte Esterase-Dipstick Negative /ul (Negative); Nitrite-Dipstick Negative (Negative); Occult Blood-Urine 10 /ul (Negative); Protein-Dipstick 100 mg/dl (Negative); Urine Bilirubin Dipstick Negative (Negative); Urine Clarity Sl. Cloudy (Clear); Urine Urobilinogen Normal (Normal)
[2019-12-16 12:19] VITALS: BP 122/89; PULSE 74; RESP 17; O2SAT 95
[2019-12-16 12:19] LABS: Lactic Acid 1.2 mmol/L (0.4-1.9)
[2019-12-16 12:26] LABS: Bacteria RARE /hpf (None Seen); Mucous, Urine RARE /hpf (<or=2+); Red Blood Cells-Urine 0-5 SEEN /hpf (0-5); Squamous Epithelial Cells - UA 0-5 SEEN /hpf (0-5)
--- NOTE | 2019-12-16 14:15 | US_ITS ---
PROCEDURE: ULTRASOUND GUIDED THORACENTESIS. DATE: December 16, 2019. INDICATION: Male, 74 years old. Right pleural effusion. PHYSICIAN: Jesus Salazar M.D. PROCEDURE: The risks, benefits, and alternatives to the procedure were explained to the patient. The specific risks of bleeding, infection, and pneumothorax requiring chest tube insertion were discussed and accepted. Written informed consent was obtained. Ultrasonographic evaluation of the right lower pleural space was carried out. An adequate pocket was identified. The patient was placed in the sitting, upright position. The overlying skin was prepped and draped in sterile fashion. 1% lidocaine was administered subcutaneously for local anesthesia. Under ultrasound guidance, a 5 [place] thoracentesis needle/catheter system was advanced into the right posterior lower pleural fluid collection. Approximately 79 mL of marija-colored fluid was drained. The catheter was removed, and a sterile dressing was applied. A specimen was collected and sent to the laboratory for analysis, as requested by the referring clinician. The patient tolerated the procedure well. A chest x-ray was ordered. US/Thoracentesis W US IMPRESSION: Ultrasound-guided right thoracentesis. Electronically Signed: Jesus Salazar, at 15:28 EDT , Service support ,
--- NOTE | 2019-12-16 14:28 | NURSING ---
[facility] DR BEDOYA FOR DR COLUNGA
--- NOTE | 2019-12-16 14:45 | FLU_PTH ---
PATIENT: FRANCISCO SIMPSON Jr. LOC: ED U#:[id number] AGE/SX: 74/M ROOM: RE12/16/[address]: Dr. Wilfredo Jacobo MD : [id number] BED: DIS: 12/16/2019 SPEC #: [id number] RECD: 12/16/19 15:10 STATUS: KYREE BRAYDEN #: [id number] HUNG: 12/16/19 14:[address]: Wilfredo Jacobo DEPT: CYTOLOGY RECD BY: Josue Guaman ENTERED: 12/19/19 11:13 SP TYPE: Fluid OTHR DR: Dr. Perry Stewart MD Tissues: THORACIC FLUID Procedures: Special Stain Group II Surgery Specimen Level IV Cytospin Fluid HEADER OPERATION: Ultrasound-guided thoracentesis PRE-OP DIAGNOSIS: Pleural effusion TISSUE SUBMITTED: Thoracentesis fluid for cytology DIAGNOSIS CYTOLOGY Thoracentesis fluid for cytology (cytospin and cell block): Negative for malignant cells. SJ:verito 12/20/19 CYTOLOGY STUDY Slides are reviewed. CYTOLOGY GROSS Received is 90 ml of reddish, cloudy fluid labeled with the patient's name and and designated per the requisition as thoracentesis. Submitted for cytology preparation including cell block. / verito 12/19/19 TC:5 CPT: 93734, 34698
[2019-12-16 14:50] VITALS: BP 105/63; BP 105/69; BP 99/78; PULSE 73; PULSE 74; PULSE 75; RESP 16; RESP 22; RESP 24; RESP 26; O2SAT 92; O2SAT 93; O2SAT 95
--- NOTE | 2019-12-16 15:10 | RAD_ITS ---
STUDY: X-RAY CHEST REASON FOR EXAM: Male, 74 years old. POST THORA INSPIRATION AND EXPIRATION TECHNIQUE: AP inspiration and expiration views. COMPARISON: Comparison is made with prior examination of earlier today. FINDINGS: The patient is status post right thoracentesis. There is no evidence of pneumothorax. Residual right basilar atelectasis and/or infiltrate persists. RAD/Chest Insp/Exp 2 View IMPRESSION: Status post right thoracentesis. There is no evidence of pneumothorax. Electronically Signed: Jesus Salazar, at 15:19 EDT , Service support ,
--- NOTE | 2019-12-16 15:25 | NURSING ---
[facility] TRANSFER LINE, CALLED. WHEN COVID TEST COMES BACK, THEN WE WILL GET CLOSER TO A BED
[2019-12-16 15:46] LABS: Body Fluid Mononuclear WBC # 0.432 10^3/uL; Body Fluid Mononuclear WBC % 90.9 %; Body Fluid Polynuclear WBC # 0.043 10^3/uL; Body Fluid Polynuclear WBC % 9.1 %; Body Fluid Total Cells Counted 0.555 10^3/ul; Red Cell Count/Body Fluid 0.006 10^6/ul; White Blood Count/Body Fluid 0.475 10^3/uL
[2019-12-16 16:28] LABS: Auto B Fluid Analyzer BKGD Ct COUNTS W/IN LIMITS (W/IN LIMITS); Color/Body Fluid YELLOW; Lymphocytes 74 %; Monocytes 21 %; Neutrophil (Segs) 5 %; Source- Body Fluid THORACENTESIS
[2019-12-16 16:29] LABS: Appearance/Body Fluid SL CLDY; Body Fluid QC Type(s) BF4Q
[2019-12-16 16:37] VITALS: BP 101/72; PULSE 80; RESP 19; O2SAT 95
[2019-12-16] MEDS: Morphine 4 MG/ML Syringe IV (18:16)
--- NOTE | 2019-12-16 18:20 | NURSING ---
[facility] G91 BED 30 REPORT [id number]
[2019-12-16] MEDS: Mexiletine 150 MG Capsule PO (18:40)
[2019-12-16] MEDS: Mexiletine HCl 200 MG Capsule PO (18:44)
[2019-12-16 19:12] LABS: Glucose, Body Fluid 110 mg/dL (40-70); Protein, Body Fluid 2.9 g/dL (Not Establ.)
[2019-12-16 19:13] LABS: LDH,Body Fluid 100 Units/l (Not Establ.)
[2019-12-19 11:42] LABS: Pathologist Comment/Body Fluid Reviewed
== END 2019-12-16 19:00 | disposition short-term general hospital (02) ==
PROVIDERS: Emergency Provider Emergency Medicine; PCP Internal Medicine
DX: R41.0 Disorientation, unspecified (principal); J90 Pleural effusion, not elsewhere classified; I25.10 Atherosclerotic heart disease of native coronary artery without angina pectoris; I12.9 Hypertensive chronic kidney disease with stage 1 through stage 4 chronic kidney disease, or unspecified chronic kidney disease; N18.9 Chronic kidney disease, unspecified; E11.22 Type 2 diabetes mellitus with diabetic chronic kidney disease; J44.9 Chronic obstructive pulmonary disease, unspecified; Z72.0 Tobacco use; Z79.82 Long term (current) use of aspirin; Z79.4 Long term (current) use of insulin; Z79.899 Other long term (current) drug therapy
CPT/HCPCS: 32555; 70450; 71045; 71046; 80053; 81001; 82945; 83605; 83615; 84157; 84484; 85025; 85610; 85730; 87040; 87070; 87075; 87086; 87205; 87635; 88108; 88305; 88313; 89050; 93005; 96365; 96367; 96375; 99285; G2023; J7030; J7050; A4216; U0002